=== PATIENT | female | born 1980 | race Caucasian/White ===

== ENCOUNTER 2017-06-06 12:20 | Inpatient (IN) | payer OTHER ==
[~2017-06-06] VITALS: Ht 160 cm; Wt 70.5 kg
[2017-06-06] MEDS ORDERED: PREN1TAB60 PO (12:27)
[2017-06-06] MEDS ORDERED: FLUO20CA19 PO (12:27)
[2017-06-06] MEDS ORDERED: LORA10TA75 PO (12:27)
[2017-06-06] MEDS ORDERED: LEVO50TA PO (12:27)
[2017-06-06 12:45] VITALS: BP 111/66
[2017-06-06] MEDS ORDERED: BETAMETHASONE 6 MG/ML, 5ML IM ONE (13:21)
[2017-06-06] MEDS: BETAMETHASONE 6 MG/ML, 5ML IM SCH (13:26)
[2017-06-06 13:33] LABS: HEMATOCRIT 36.2 % (34.6-47.8); HEMOGLOBIN 11.9 g/dL (11.7-16.4); WHITE BLOOD COUNT 8.4 x10^3/uL (3.4-10)
[2017-06-06] MEDS ORDERED: LACTATED RINGERS 500 ML IVBOLUS ONE (14:00)
[2017-06-06] MEDS: LACTATED RINGERS 1,000 ML IV SCH ×2 (14:02→22:00)
[2017-06-06] MEDS ORDERED: MAGNESIUM SULFATE PMX 4GM/100M 100 ML IVPB ONE (15:00)
[2017-06-06] MEDS ORDERED: MAGNESIUM SULFATE PMX 4GM/100M 100 ML ONE (15:00)
[2017-06-06] MEDS ORDERED: MAGNESIUM SULF. PMX 20GM/500ML 500 ML IV ONE (15:00)
[2017-06-06] MEDS: MAGNESIUM SULF. PMX 20GM/500ML 500 ML IV SCH (15:38)
[2017-06-06 15:53] LABS: PATH.CAST-FLAG NOT PRESENT; SPERM-FLAG NOT PRESENT; SRC-FLAG NOT PRESENT; XTAL-FLAG NOT PRESENT; YLC-FLAG NOT PRESENT
[2017-06-06] MEDS: LACTATED RINGERS 1,000 ML IV PRN (18:04)
[2017-06-06] MEDS ORDERED: DIPHENHYDRAMINE 50 MG CAPSULE PO PRN (21:00)
[2017-06-06] MEDS: SODIUM CHLORIDE FLUSH 3ML SYRINGE IVF SCH (21:00)
[2017-06-07] MEDS ORDERED: MAGNESIUM SULF. PMX 20GM/500ML 500 ML IV ONE ×3 (01:40→21:58)
[2017-06-07] MEDS: MAGNESIUM SULF. PMX 20GM/500ML 500 ML IV SCH ×3 (01:42→22:32)
[2017-06-07] MEDS: LEVOTHYROXINE 50 MCG TABLET PO SCH (05:56)
[2017-06-07] MEDS: LACTATED RINGERS 1,000 ML IV SCH ×3 (06:00→22:00)
[2017-06-07] MEDS: LACTATED RINGERS 1,000 ML IV PRN (07:30)
[2017-06-07] MEDS ORDERED: PRENATAL VIT/IRON/FA 1 EACH TABLET PO SCH (09:00)
[2017-06-07] MEDS ORDERED: LORATADINE 10 MG TABLET PO SCH (09:00)
[2017-06-07] MEDS: SODIUM CHLORIDE FLUSH 3ML SYRINGE IVF SCH ×2 (09:00→21:00)
[2017-06-07] MEDS ORDERED: FLUOXETINE 20 MG CAPSULE PO SCH (09:00)
[2017-06-07] MEDS: BETAMETHASONE 6 MG/ML, 5ML IM SCH (13:35)
[2017-06-08] MEDS: LACTATED RINGERS 1,000 ML IV SCH ×3 (06:00→22:00)
[2017-06-08] MEDS: LEVOTHYROXINE 50 MCG TABLET PO SCH (06:00)
[2017-06-08] MEDS: LEVOTHYROXINE 50 MCG TABLET HOMEMEDPO SCH (06:23)
[2017-06-08] MEDS ORDERED: DIPHENHYDRAMINE 50 MG CAPSULE HOMEMEDPO PRN (06:30)
[2017-06-08] MEDS ORDERED: MAGNESIUM SULF. PMX 20GM/500ML 500 ML IV ONE (08:02)
[2017-06-08] MEDS: MAGNESIUM SULF. PMX 20GM/500ML 500 ML IV SCH (08:08)
[2017-06-08] MEDS: FLUOXETINE 20 MG CAPSULE HOMEMEDPO SCH (09:28)
[2017-06-08] MEDS: LORATADINE 10 MG TABLET HOMEMEDPO SCH (09:28)
[2017-06-08] MEDS ORDERED: PRENATAL VIT/IRON/FA 1 EACH TABLET ONE (09:29)
[2017-06-08] MEDS: PRENATAL VIT/IRON/FA 1 EACH TABLET HOMEMEDPO SCH (09:30)
[2017-06-08] MEDS: LACTATED RINGERS 1,000 ML IV PRN (10:20)
[2017-06-08 20:01] VITALS: BP 98/53
[2017-06-08] MEDS: SODIUM CHLORIDE FLUSH 3ML SYRINGE IVF SCH ×2 (21:00→21:15)
[2017-06-08] MEDS ORDERED: DOCUSATE 100 MG CAPSULE ONE (21:37)
[2017-06-08] MEDS: DOCUSATE 100 MG CAPSULE PO SCH (21:40)
[2017-06-09] MEDS ORDERED: TERBUTALINE 1 MG/ML, 1ML ONE (04:20)
[2017-06-09] MEDS ORDERED: TERBUTALINE 1 MG/ML, 1ML SQ ONE (04:30)
[2017-06-09] MEDS ORDERED: MAGNESIUM SULF. PMX 20GM/500ML 500 ML IV SCH (05:10)
[2017-06-09] MEDS ORDERED: MAGNESIUM SULFATE PMX 4GM/100M 100 ML IVPB ONE (05:30)
[2017-06-09] MEDS ORDERED: OXYTOCIN 30U/ 0.9% NaCL 500ML 500 ML IV SCH (05:56)
[2017-06-09] MEDS ORDERED: LACTATED RINGERS 1,000 ML IV SCH (05:56)
[2017-06-09] MEDS ORDERED: SODIUM CITRATE/CITRIC ACID 30 ML UDC PO ONE (06:00)
[2017-06-09] MEDS: LACTATED RINGERS 1,000 ML IV SCH ×5 (06:00→18:36)
[2017-06-09] MEDS ORDERED: METOCLOPRAMIDE 5 MG/ML, 2ML IV ONE (06:00)
[2017-06-09] MEDS ORDERED: LACTATED RINGERS 1,000 ML IVBOLUS ONE (06:00)
[2017-06-09] MEDS ORDERED: NEWBORN KIT ONE (06:03)
[2017-06-09 06:18] LABS: HEMATOCRIT 32.2 % (34.6-47.8); HEMOGLOBIN 10.6 g/dL (11.7-16.4); WHITE BLOOD COUNT 11.5 x10^3/uL (3.4-10)
[2017-06-09] MEDS ORDERED: SODIUM CITRATE/CITRIC ACID 30 ML UDC ONE (06:26)
[2017-06-09] MEDS ORDERED: METOCLOPRAMIDE 5 MG/ML, 2ML ONE (06:26)
[2017-06-09] MEDS ORDERED: OXYTOCIN 30U/ 0.9% NaCL 500ML 500 ML ONE (06:35)
[2017-06-09] MEDS ORDERED: morphine SULFATE/PF 1 MG/ML, 10ML ONE (07:14)
[2017-06-09] MEDS ORDERED: FENTANYL PF 100 MCG/2ML ONE ×2 (07:15→07:27)
[2017-06-09] MEDS ORDERED: OXYTOCIN 10 UNITS/ML, 1ML ONE (07:27)
[2017-06-09] MEDS ORDERED: DEXAMETHASONE 4 MG/ML, 1ML ONE (07:27)
[2017-06-09] MEDS ORDERED: LIDOCAINE 1%, 20ML ONE (07:27)
[2017-06-09] MEDS ORDERED: ONDANSETRON 2MG/ML, 2ML ONE (07:27)
[2017-06-09] MEDS ORDERED: CEFAZOLIN 1,000 MG ONE (07:27)
[2017-06-09 09:00] VITALS: BP 101/59
[2017-06-09] MEDS: PRENATAL VIT/IRON/FA 1 EACH TABLET HOMEMEDPO SCH (09:00)
[2017-06-09] MEDS ORDERED: ACETAMINOPHEN 325 MG TABLET PO PRN ×3 (09:00)
[2017-06-09] MEDS: SODIUM CHLORIDE FLUSH 3ML SYRINGE IVF SCH (09:00)
[2017-06-09] MEDS: DOCUSATE 100 MG CAPSULE PO SCH (09:00)
[2017-06-09] MEDS ORDERED: MISOPROSTOL 200 MCG TABLET PR PRN (09:00)
[2017-06-09] MEDS ORDERED: ONDANSETRON 2MG/ML, 2ML IV PRN (09:00)
[2017-06-09] MEDS ORDERED: CALCIUM CARBONATE 500 MG TAB.CHEW PO PRN (09:00)
[2017-06-09] MEDS: PRENATAL VIT/IRON/FA 1 EACH TABLET PO SCH (09:00)
[2017-06-09] MEDS ORDERED: GLYCERIN ADULT SUPP PR PRN (09:00)
[2017-06-09] MEDS ORDERED: BISACODYL 10 MG SUPP PR PRN (09:00)
[2017-06-09] MEDS ORDERED: MEPERIDINE/PF 50 MG/ML IVPush PRN (09:00)
[2017-06-09] MEDS ORDERED: METHYLERGONOVINE 0.2 MG/ML IM PRN (09:00)
[2017-06-09] MEDS ORDERED: CARBOPROST TROMETHAMINE 250 MCG/ML, 1ML IM PRN (09:00)
[2017-06-09] MEDS ORDERED: OXYcodone/APAP 5/325MG TABLET PO PRN ×3 (09:00→10:30)
[2017-06-09] MEDS ORDERED: DIPHENHYDRAMINE 50 MG/ML, 1ML ONE (09:09)
[2017-06-09] MEDS ORDERED: MORPHINE SULFATE 4 MG/ML, 1ML ONE (09:20)
[2017-06-09] MEDS ORDERED: OXYcodone/APAP 5/325MG TABLET ONE (09:26)
[2017-06-09] MEDS: OXYcodone/APAP 5/325MG TABLET PO PRN (09:35)
[2017-06-09] MEDS: OXYTOCIN 30U/ 0.9% NaCL 500ML 500 ML IV SCH ×2 (09:50→18:36)
[2017-06-09] MEDS ORDERED: DIPHENHYDRAMINE 50 MG/ML, 1ML IV PRN (10:30)
[2017-06-09] MEDS ORDERED: ONDANSETRON 2MG/ML, 2ML IVPush PRN (10:30)
[2017-06-09] MEDS ORDERED: NALOXONE 0.4 MG/ML, 1ML IVPush PRN (10:30)
[2017-06-09] MEDS ORDERED: NALOXONE 0.4 MG/ML, 1ML IV PRN (10:30)
[2017-06-09] MEDS ORDERED: EPHEDRINE 50 MG/ML, 1ML IVPush PRN ×2 (10:30)
[2017-06-09] MEDS ORDERED: DO NOT GIVE XX SCH (10:30)
[2017-06-09] MEDS ORDERED: NO SEDATIVES, TRANQUILIZERS OR ANTIEMETICS XX SCH (10:30)
[2017-06-09] MEDS ORDERED: DIPHENHYDRAMINE 50 MG/ML, 1ML IVPush PRN (10:30)
[2017-06-09] MEDS ORDERED: morphine SULFATE 10 MG/ML, 1ML IVPush PRN ×2 (10:30)
[2017-06-09] MEDS: MORPHINE SULFATE 4 MG/ML, 1ML IVPush PRN ×3 (10:36→14:37)
[2017-06-09 10:50] VITALS: BP 103/65
[2017-06-09] MEDS: FLUOXETINE 20 MG CAPSULE HOMEMEDPO SCH (11:10)
[2017-06-09] MEDS: LORATADINE 10 MG TABLET HOMEMEDPO SCH (11:11)
[2017-06-09] MEDS: OXYcodone IR 5MG TABLET PO PRN ×3 (13:23→23:52)
[2017-06-09 14:50] VITALS: BP 108/61
[2017-06-09 16:04] LABS: HEMATOCRIT 29.6 % (34.6-47.8); HEMOGLOBIN 9.7 g/dL (11.7-16.4); WHITE BLOOD COUNT 18.7 x10^3/uL (3.4-10)
[2017-06-09 19:30] VITALS: BP 96/51
[2017-06-09] MEDS: DOCUSATE 100 MG CAPSULE PO PRN (19:31)
[2017-06-09 23:55] VITALS: BP 106/71
[2017-06-10] MEDS: LACTATED RINGERS 1,000 ML IV SCH ×5 (00:36→15:50)
[2017-06-10] MEDS: OXYcodone IR 5MG TABLET PO PRN ×3 (03:54→20:59)
[2017-06-10 03:58] VITALS: BP 103/56
[2017-06-10] MEDS: OXYTOCIN 30U/ 0.9% NaCL 500ML 500 ML IV SCH ×2 (04:36→14:36)
[2017-06-10] MEDS: SIMETHICONE 80 MG CHEW TAB PO PRN ×3 (06:31→18:43)
[2017-06-10] MEDS: LEVOTHYROXINE 50 MCG TABLET HOMEMEDPO SCH (06:33)
[2017-06-10] MEDS: FLUOXETINE 20 MG CAPSULE HOMEMEDPO SCH (06:35)
[2017-06-10 07:25] VITALS: BP 89/57
[2017-06-10] MEDS: DOCUSATE 100 MG CAPSULE PO PRN ×2 (08:30→20:59)
[2017-06-10] MEDS: OXYcodone/APAP 5/325MG TABLET PO PRN ×2 (08:39→12:45)
[2017-06-10] MEDS: LORATADINE 10 MG TABLET HOMEMEDPO SCH (09:00)
[2017-06-10] MEDS: PRENATAL VIT/IRON/FA 1 EACH TABLET HOMEMEDPO SCH (09:00)
[2017-06-10] MEDS: PRENATAL VIT/IRON/FA 1 EACH TABLET PO SCH (09:00)
[2017-06-10] MEDS ORDERED: ONDANSETRON 2MG/ML, 2ML IV PRN (15:00)
[2017-06-10] MEDS ORDERED: OXYcodone/APAP 5/325MG TABLET PO PRN (15:00)
[2017-06-10] MEDS ORDERED: CALCIUM CARBONATE 500 MG TAB.CHEW PO PRN (15:00)
[2017-06-10] MEDS ORDERED: BISACODYL 10 MG SUPP PR PRN (15:00)
[2017-06-10] MEDS ORDERED: MISOPROSTOL 200 MCG TABLET PR PRN (15:00)
[2017-06-10] MEDS ORDERED: CARBOPROST TROMETHAMINE 250 MCG/ML, 1ML IM PRN (15:00)
[2017-06-10] MEDS ORDERED: ACETAMINOPHEN 325 MG TABLET PO PRN ×2 (15:00)
[2017-06-10] MEDS ORDERED: GLYCERIN ADULT SUPP PR PRN (15:00)
[2017-06-10] MEDS ORDERED: OXYcodone IR 5MG TABLET PO PRN (16:30)
[2017-06-10] MEDS ORDERED: FERROUS GLUCONATE 324 MG TABLET PO SCH (17:00)
[2017-06-10] MEDS ORDERED: ACETAMINOPHEN 325 MG TABLET PO SCH (17:00)
[2017-06-10] MEDS: FERROUS GLUCONATE 324 MG TABLET PO SCH (17:06)
[2017-06-10] MEDS: ACETAMINOPHEN 325 MG TABLET PO SCH ×2 (17:06→22:57)
[2017-06-10 20:10] VITALS: BP 102/63
[2017-06-11] MEDS: OXYTOCIN 30U/ 0.9% NaCL 500ML 500 ML IV SCH ×3 (00:36→20:36)
[2017-06-11] MEDS: LACTATED RINGERS 1,000 ML IV SCH ×6 (00:36→20:36)
[2017-06-11] MEDS: OXYcodone IR 5MG TABLET PO PRN ×3 (01:07→09:34)
[2017-06-11] MEDS: SIMETHICONE 80 MG CHEW TAB PO PRN ×4 (01:07→23:27)
[2017-06-11] MEDS: ACETAMINOPHEN 325 MG TABLET PO SCH ×4 (05:10→23:27)
[2017-06-11] MEDS: LEVOTHYROXINE 50 MCG TABLET HOMEMEDPO SCH (05:12)
[2017-06-11] MEDS: LORATADINE 10 MG TABLET HOMEMEDPO SCH (08:51)
[2017-06-11] MEDS: PRENATAL VIT/IRON/FA 1 EACH TABLET PO SCH (08:51)
[2017-06-11 08:55] VITALS: BP 110/78
[2017-06-11] MEDS: DOCUSATE 100 MG CAPSULE PO PRN ×2 (09:03→21:04)
[2017-06-11] MEDS: HYDROmorphone 2MG TABLET PO PRN ×4 (11:24→21:05)
[2017-06-11] MEDS: FERROUS GLUCONATE 324 MG TABLET PO SCH (16:50)
[2017-06-11 20:00] VITALS: BP 107/73
[2017-06-12] MEDS: LACTATED RINGERS 1,000 ML IV SCH ×3 (00:36→08:36)
[2017-06-12] MEDS: SIMETHICONE 80 MG CHEW TAB PO PRN ×3 (01:48→22:59)
[2017-06-12] MEDS: HYDROmorphone 2MG TABLET PO PRN ×2 (01:48→06:34)
[2017-06-12] MEDS: LEVOTHYROXINE 50 MCG TABLET HOMEMEDPO SCH (06:00)
[2017-06-12] MEDS: ACETAMINOPHEN 325 MG TABLET PO SCH ×4 (06:35→22:59)
[2017-06-12] MEDS: OXYTOCIN 30U/ 0.9% NaCL 500ML 500 ML IV SCH (06:36)
[2017-06-12 08:00] VITALS: BP 104/72
[2017-06-12] MEDS: LORATADINE 10 MG TABLET HOMEMEDPO SCH (09:00)
[2017-06-12] MEDS: FLUOXETINE 20 MG CAPSULE HOMEMEDPO SCH (09:00)
[2017-06-12] MEDS: PRENATAL VIT/IRON/FA 1 EACH TABLET PO SCH (09:00)
[2017-06-12] MEDS: DOCUSATE 100 MG CAPSULE PO PRN ×2 (09:04→22:59)
[2017-06-12] MEDS: OXYcodone IR 5MG TABLET PO PRN (12:32)
[2017-06-12] MEDS: FERROUS GLUCONATE 324 MG TABLET PO SCH (16:56)
[2017-06-12 19:25] VITALS: BP 103/70
[2017-06-13] MEDS ORDERED: DIPH,PERTUSS(ACELL),TET VAC/PF NC IM-VACC ONE ×2 (00:30→15:11)
[2017-06-13] MEDS: OXYcodone IR 5MG TABLET PO PRN ×2 (03:38→15:18)
[2017-06-13] MEDS: ACETAMINOPHEN 325 MG TABLET PO SCH ×2 (05:02→11:47)
[2017-06-13] MEDS: LEVOTHYROXINE 50 MCG TABLET HOMEMEDPO SCH (06:00)
[2017-06-13 08:00] VITALS: BP 110/78
[2017-06-13] MEDS: DOCUSATE 100 MG CAPSULE PO PRN (08:13)
[2017-06-13] MEDS: PRENATAL VIT/IRON/FA 1 EACH TABLET PO SCH (08:13)
[2017-06-13] MEDS: FLUOXETINE 20 MG CAPSULE HOMEMEDPO SCH (08:13)
[2017-06-13] MEDS: LORATADINE 10 MG TABLET HOMEMEDPO SCH (08:14)
[2017-06-13] MEDS ORDERED: OXYC1TAB7 PO (13:08)
== END 2017-06-13 17:24 | disposition home or self-care (01) | DRG 766 ==
LOC: LDOP 12:20 → LDIP 13:10 → 2NW 06-09 10:44
PROVIDERS: ADMIT Obstetrics & Gynecology; ATTEND Obstetrics & Gynecology
PROC: 10D00Z1 Extraction of Products of Conception, Low, Open Approach (ICD-10-PCS; principal; 2017-06-09)
DX: O44.13 Complete placenta previa with hemorrhage, third trimester (principal); O24.420 Gestational diabetes mellitus in childbirth, diet controlled; F32.9 Major depressive disorder, single episode, unspecified; O99.344 Other mental disorders complicating childbirth; O99.284 Endocrine, nutritional and metabolic diseases complicating childbirth; F41.9 Anxiety disorder, unspecified; O99.02 Anemia complicating childbirth; D64.9 Anemia, unspecified; E03.9 Hypothyroidism, unspecified; Z37.0 Single live birth; Z3A.34 34 weeks gestation of pregnancy; Z88.6 Allergy status to analgesic agent
CPT/HCPCS: 36415; 76815; 81001; 82962; 83735; 85025; 85384; 86850; 86900; 86923; 90715; J0690; J0702; J1100; J2274; J2405; J3010; J3490; J1200; J2270; J2590; J2765; J3105; J3475; J7120

== ENCOUNTER 2017-06-27 18:05 | Emergency (ER) | payer OTHER ==
[~2017-06-27] VITALS: Ht 160 cm; Wt 64.0 kg
[~2017-06-27 18:05] MED LIST: FLUO20CA19 PO; LEVO50TA PO; LORA10TA75 PO; OXYC1TAB7 PO; PREN1TAB60 PO
[2017-06-27 18:07] VITALS: BP 106/74
[2017-06-27] MEDS ORDERED: SODIUM CHLORIDE 0.9% 1,000ML IVBOLUS ONE (18:30)
[2017-06-27 18:44] LABS: WHITE BLOOD COUNT 6.3 x10^3/uL (3.4-10)
[2017-06-27 18:52] LABS: BLOOD UREA NITROGEN 14 mg/dL (7-18)
== END 2017-06-27 20:38 | disposition home or self-care (01) ==
LOC: ED 20:20
DX: O72.1 Other immediate postpartum hemorrhage (principal)
CPT/HCPCS: 36415; 76856; 80048; 82040; 84702; 85025; 96360; 96361; 99285; J7030